=== PATIENT | male | born 1950 | race Caucasian/White ===

== ENCOUNTER 2024-08-29 09:50 | Outpatient (REF) | payer MEDICARE, MEDICAID, SELFPAY ==
--- NOTE | ~2024-08-29 | MR_ITS ---
EXAMINATION: MR BRAIN WITHOUT CONTRAST CLINICAL INFORMATION: Dementia. COMPARISON: None available. TECHNIQUE: MRI of the brain was obtained using routine sequences without contrast. FINDINGS: Patient's motion artifact. No restricted diffusion. No acute intracranial hemorrhage, mass effect, midline shift, hydrocephalus or herniation. Bilateral multifocal punctate deep periventricular white matter hyperintense T2 FLAIR signal involving centrum semiovale and benitez radiata. Prominence of the extra-axial CSF spaces cerebral sulci and ventricles involving mostly the bifrontal bitemporal regions. There is volume loss of the hippocampi affecting mostly the right side. Small cavum septum pellucidum, congenital. Flow-void signal within the main cerebral vessels is normal. Sellar/suprasellar region to straighten no signal abnormality or masses. Craniocervical junction is intact and normal. MR/MR head/brain wo con IMPRESSION: No acute brain abnormality. Atrophy, Bifrontal bitemporal lobes. Volume loss, right greater than the left hippocampi. Electronically signed by: Shivam Spangler MD 08/29/2024 02:06 PM EDT
== END 2024-08-29 09:51 | disposition home or self-care (01) ==
LOC: HO.MRI 09:50
PROVIDERS: PCP Internal Medicine; Visit Provider Internal Medicine
DX: F03.90 Unspecified dementia, unspecified severity, without behavioral disturbance, psychotic disturbance, mood disturbance, and anxiety (principal)
CPT/HCPCS: 70551

== ENCOUNTER → 2024-08-29 10:52 | Outpatient (BNV) | payer MEDICARE, MEDICAID, SELFPAY | PROVIDERS: PCP Internal Medicine; Visit Provider Radiology Diagnostic Radiology | DX: F03.90 Unspecified dementia, unspecified severity, without behavioral disturbance, psychotic disturbance, mood disturbance, and anxiety (principal) | CPT/HCPCS: 70551 ==